=== PATIENT | female | born 1990 ===

== ENCOUNTER 2016-10-29 16:41 | Emergency (ER) | payer SELFPAY ==
[2016-10-29 18:22] LABS: APPEARANCE HAZY (CLEAR); BILIRUBIN NEGATIVE (NEGATIVE); COLOR YELLOW (YELLOW); GLUCOSE NEGATIVE (NEGATIVE); HCG URINE NEGATIVE (NEGATIVE); KETONE NEGATIVE (NEGATIVE); LEUKOCYTE ESTERASE 1+ (NEGATIVE); NITRITE NEGATIVE (NEGATIVE); PROTEIN NEGATIVE (NEGATIVE); SPECIFIC GRAVITY 1.025 (1.005-1.020); UROBILINOGEN NORMAL (NORMAL)
[2016-10-29 18:25] LABS: AMORPHOUS SEDIMENT >1+ /lpf (NONE SEEN); BACTERIA MODERATE /hpf (NONE SEEN); EPITHELIAL CELLS 0-5 /hpf (0-5); MUCUS <1+ /lpf (NONE SEEN); RED CELLS - URINE OCC /hpf (0-5)
== END 2016-10-29 18:30 | disposition left against medical advice (07) ==
LOC: D.ER 16:41
PROVIDERS: Emergency Medicine
DX: Z02.9 Encounter for administrative examinations, unspecified (principal)